=== PATIENT | male | born 1970 | race Two or more races ===

== ENCOUNTER 2020-02-15 06:15 | Emergency (ER) | payer MEDICAID, OTHER ==
[~2020-02-15] VITALS: Ht 152.4 cm; Wt 98.4 kg
--- NOTE | 2020-02-15 06:20 | NUR ---
PT BIBA C/O DIZZINESS. FEELS LIKE THE ROOM IS SPINNING WHILE HE WAS ON HIS WAY TO WORK. PT ALSO ENDORSES TINGLING, TREMORS, AND SWEATY PALMS. PT AAOX4, VSS, RESPIRATIONS EVEN AND UNLABORED ON RA W/ NAD NOTED. PT CONNECTED TO THE FINISHER [employer] AND POX
--- NOTE | 2020-02-15 06:24 | NUR ---
DR FORD AT BEDSIDE
[2020-02-15] MEDS ORDERED: MECLIZINE HCL 12.5 MG TABLET PO ONE (06:30)
[2020-02-15] MEDS ORDERED: IV NS 0.9% 1,000 ML BAG IV ONE (06:30)
--- NOTE | 2020-02-15 06:32 | NUR ---
BLOOD COLLECTED AND SENT TO LAB
[2020-02-15] MEDS ORDERED: MECLIZINE HCL 25 MG TABLET ONE (06:33)
--- NOTE | 2020-02-15 06:38 | NUR ---
PT MEDICATED ORDERED
[2020-02-15 06:46] LABS: BASOPHILS % (AUTO) 0.3 % (0.0-2.0); EOSINOPHILS % (AUTO) 3.2 % (0.0-6.0); HEMATOCRIT 44 % (39-51); HEMOGLOBIN 14.9 g/dL (13.5-17.5); LYMPHOCYTES % (AUTO) 20.1 % (20.0-44.0); MEAN CORPUSCULAR HGB CONC 34 g/dl (31.0-36.0); MEAN CORPUSCULAR VOLUME 91 fL (80-96); MONOCYTES # (AUTO) 0.7 /CMM (0.1-1.30); MONOCYTES % (AUTO) 6.7 % (2.0-12.0); NEUTROPHILS % (AUTO) 69.7 % (43.0-81.0); PLATELET COUNT (AUTO) 300 /CMM (150-450); RED BLOOD CELL COUNT(AUTO) 4.89 MIL/uL (4.5-6.0)
--- NOTE | 2020-02-15 06:47 | NUR ---
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
[2020-02-15 06:55] LABS: CALCIUM, SERUM 8.1 mg/dL (8.5-10.1); CARBON DIOXIDE 26 mmol/L (21-32); CHLORIDE 102 mmol/L (98-107); CREATININE 1.1 mg/dL (0.6-1.3); GLUCOSE 135 mg/dL (74-106); POTASSIUM 3.3 mmol/L (3.5-5.1); SODIUM SERUM 137 mmol/L (136-145); UREA NITROGEN, BLOOD 18 mg/dL (7-18)
--- NOTE | 2020-02-15 07:25 | NUR ---
RECEIVED REPORT FROM JT ORTIZ FOR KIM, PT IS AAOX4 AMHARIC SPEAKING ONLY, NOT IN RESPIRATORY DISTRESS, V/S STABLE, KEPT RESTED AND COMFORTABLE, WILL CONTINUE TO MONITOR.
--- NOTE | 2020-02-15 07:29 | NUR ---
CALLED PHARMACY FOR VALIUM IV.
[2020-02-15] MEDS ORDERED: DIAZEPAM 10 MG TABLET PO ONE (07:30)
[2020-02-15] MEDS ORDERED: POTASSIUM CHLORIDE 20 MEQ TAB.PRT.SR PO ONE ×2 (07:30→07:34)
[2020-02-15] MEDS ORDERED: DIAZEPAM 5 MG/ML 2 ML DISP.SYRIN IV ONE ×2 (07:30→08:00)
[2020-02-15] MEDS ORDERED: DIAZEPAM 5 MG/ML 2 ML DISP.SYRIN ONE (07:33)
[2020-02-15 07:52] VITALS: BP 108/70
--- NOTE | 2020-02-15 07:52 | NUR ---
IV removed. Catheter intact and site benign. Pressure and 4x4 applied to site. No bleeding noted. Patient discharged to home in stable condition. Written and verbal after care instructions given. Patient verbalizes understanding of instruction.
== END 2020-02-15 07:52 | disposition home or self-care (01) ==
LOC: ER 06:17
DX: R42 Dizziness and giddiness (principal); E87.6 Hypokalemia; R55 Syncope and collapse
CPT/HCPCS: 36415; 71045; 80048; 82962; 84484; 85025; 93005; 96361; 96374; 99285; J3360; J8597